=== PATIENT | male | born 1955 | race Caucasian/White ===

== ENCOUNTER 2023-08-25 19:09 | Emergency (ER) | payer OTHER, SELFPAY ==
[2023-08-25] VITALS (10 sets, daily range): BP systolic 142–160; BP diastolic 75–88; PULSE 82–98; RESP 18; TEMP 36.9; O2SAT 93–97; BMI 28.5
--- NOTE | 2023-08-25 19:50 | ED.NAVMDI ---
HPI - Nausea/Vomiting/Diarrhea General Chief complaint: Nausea/Vomiting/Diarrhea Stated complaint: disoriented, dehydrated, vomitting Time Seen by Provider: 08/25/23 19:37 Source: patient Mode of arrival: Ambulatory History of Present Illness HPI Narrative: 68-year-old male here for evaluation of just under 24 hours of multiple episodes of vomiting. No diarrhea. No recent travel. He stated that a family member recently had a URI like illness and he develop that yesterday as well. Denies chest pain or shortness of breath. Is having some congestion. No abdominal pain. He states he feels very fatigued. Has not tried anything for symptoms prior to arrival Related Data Allergies Allergy/AdvReac Type Severity Reaction Status Date / Time clopidogrel Allergy Verified 08/25/23 19:51 Review of Systems Review of Systems Narrative: See HPI Patient History Social History Smoking Status: Former smoker Smoking Status: Former smoker alcohol intake frequency: a few times a month Alcohol type: beer, wine and hard liquor Substance Use Type: does not use Exam Initial Vital Signs Initial Vital Signs: Vital Signs Pulse Rate 95 H 08/25/23 19:21 Pulse Oximetry 94 08/25/23 19:21 Const General: cooperative, comfortable and No ill appearing Resp Effort & Inspection: normal respiratory effort Auscultation: clear to auscultation bilaterally Cardio Rate: regular rate Rhythm: regular rhythm GI Inspection: normal to inspection and non-distended Palpation: soft and No tender Skin General: no rashes or lesions noted Neuro General: patient alert, patient awake, patient oriented x3 and moves all extremities Extrem General: normal to inspection Course Orders Ordered: ED Orders 08/25/23 19:40 Complete Blood Count AUTO DIFF Stat Comprehensive Metabolic Panel Stat Lipase Stat 08/25/23 19:53 Covid-19 + FLU A/B + RSV - PCR Stat Discontinued Medications Sodium Chloride (Normal Saline 0.9%) 1,000 mls @ 1,000 mls/hr IV BOLUS ONE Stop: 08/25/23 20:42 Last Infusion: 08/25/23 22:25 Dose: Infused Documented By: Admin: 08/25/23 19:56 Dose: 1,000 mls/hr Documented By: GISELA Ondansetron HCl (Ondansetron 4 Mg Odt) 4 mg SL NOW PRN PRN Reason: Nausea And Vomiting Ondansetron HCl (Ondansetron 4 Mg/2 Ml Inj) 4 mg IV NOW PRN PRN Reason: Nausea And Vomiting Last Admin: 08/25/23 19:57 Dose: 4 mg Documented By: GISELA Ondansetron HCl (Ondansetron 4 Mg Odt Prepack) 1 bottle MISC DIRECTED ONE Stop: 08/25/23 21:44 Last Admin: 08/25/23 22:24 Dose: 1 bottle Documented By: GISELA Vital Signs Vital signs: Vital Signs - 8 hr 08/25/23 19:21 08/25/23 19:23 08/25/23 19:23 Temperature Pulse Rate 95 H 94 H Respiratory Rate Blood Pressure 160/87 H Pulse Oximetry 94 94 Oxygen Delivery Method 08/25/23 19:24 08/25/23 19:30 08/25/23 19:30 Temperature 98.4 F Pulse Rate 94 H 89 Respiratory Rate 18 Blood Pressure 160/87 H 150/82 H Pulse Oximetry 95 93 Oxygen Delivery Method Room Air 08/25/23 20:00 08/25/23 20:00 08/25/23 20:30 Temperature Pulse Rate 89 88 Respiratory Rate Blood Pressure 151/75 H Pulse Oximetry 94 96 Oxygen Delivery Method 08/25/23 20:30 08/25/23 21:00 08/25/23 21:30 Temperature Pulse Rate 87 98 H Respiratory Rate Blood Pressure 152/88 H Pulse Oximetry 97 97 Oxygen Delivery Method 08/25/23 22:00 08/25/23 22:14 08/25/23 22:14 Temperature Pulse Rate 82 90 Respiratory Rate Blood Pressure 142/85 H Pulse Oximetry 96 96 Oxygen Delivery Method MDM - Nausea/Vomiting/Diarrhea Lab Data 08/25/23 19:40 08/25/23 19:40 Labs: Lab Results 08/25/23 08/25/23 Range/Units 19:40 19:53 WBC 9.0 (4.5-11.0) X10^3/uL RBC 4.68 (4.5-5.9) X10^6/uL Hgb 15.4 (13.5-17.5) g/dL Hct 43.7 (41-53) % MCV 93.5 (80-100) fL MCH 32.9 (26-34) PG MCHC 35.3 (30-36) % RDW 13.2 (11.6-14.8) % Plt Count 214 (150-400) X10^3/uL Neut % (Auto) 85.6 H (50-75) % Lymph % (Auto) 5.4 L (25-40) % Glades % (Auto) 8.9 (3-14) % Eos % (Auto) 0.0 L (2-4) % Baso % (Auto) 0.1 (0-2) % Neut # (Auto) 7700 H (1790-7195) /uL Lymph # (Auto) 500 L (4619-4795) /uL Glades # (Auto) 800 (0-900) /uL Eos # (Auto) 0 (0-450) /uL Baso # (Auto) 0 (0-100) /uL Sodium 135 L (137-145) mmol/L Potassium 3.9 (3.4-5.1) mmol/L Chloride 104 (98-107) mmol/L Carbon Dioxide 22 (22-32) mmol/L BUN 12 (9-20) mg/dL Creatinine 0.57 L (0.66-1.25) mg/dL Estimated GFR > 60 (>60) mL/min BUN/Creatinine Ratio 21.1 (6-22) Glucose 153 H (80-110) mg/dL Calcium 8.9 (8.4-10.2) mg/dL Total Bilirubin 0.7 (0.2-1.3) mg/dL AST 23 (17-59) IU/L ALT 23 (<50) IU/L Alkaline Phosphatase 82 (38-126) U/L Total Protein 7.2 (6.3-8.2) g/dL Albumin 4.7 (3.5-5.0) g/dL Globulin 2.5 (1.7-4.1) g/dL Albumin/Globulin Ratio 1.9 (1.0-2.8) Lipase 35 (23-300) U/L SARS-CoV-2 (PCR) Negative (Negative) Influenza A (RT-PCR) Flu a negative (NEGATIVE) Influenza B (RT-PCR) Flu b negative (NEGATIVE) RSV (PCR) Negative (Negative) MDM Narrative Medical decision making narrative: Labs unremarkable. After fluids here in the emergency department and medications he stated that he was feeling much better. He tolerated oral intake. Will discharge patient home nausea medication. He was given return precautions. Discharge Plan Departure Patient Disposition: Home Clinical Impression: Acute vomiting, Dehydration Instructions: DI for Vomiting -- Adult Activity Restrictions/Additional Instructions: I do recommend a bland diet for the next couple days. Try to increase your fluid intake. Use the nausea medication as needed. I would not be surprised if you develop some diarrhea over the next couple days as well as this frequently follows episodes of vomiting. Return to the emergency department for new or worsening symptoms. Stand Alone Forms: Patient Portal/API
[2023-08-25 19:52] LABS: Add Manual Diff / Slide Review NO; Basophils Absolute Auto 0 /uL (0-100); Basophils Percent Auto 0.1 % (0-2); Eosinophils Absolute Auto 0 /uL (0-450); Hematocrit 43.7 % (41-53); Hemoglobin 15.4 g/dL (13.5-17.5); Lymphocytes Absolute Auto 500 /uL (1100-4500); Lymphocytes Percent Auto 5.4 % (25-40); Mean Corpuscular HGB Conc 35.3 % (30-36); Mean Corpuscular Hemoglobin 32.9 PG (26-34); Mean Corpuscular Volume 93.5 fL (80-100); Monocytes Absolute Auto 800 /uL (0-900); Monocytes Percent Auto 8.9 % (3-14); Neutrophils Absolute Auto 7700 /uL (1500-7000); Neutrophils Percent Auto 85.6 % (50-75); Platelet Count 214 X10^3/uL (150-400); Red Blood Cell Count 4.68 X10^6/uL (4.5-5.9); Red Cell Distribution Width 13.2 % (11.6-14.8)
[2023-08-25] MEDS: SODIUM CHLORIDE 0.9% 1,000 ML 1000 ML IV (19:56)
[2023-08-25] MEDS: ONDANSETRON 4 MG/2 ML INJ IV (19:57)
[2023-08-25 20:05] LABS: Alanine Aminotransferase 23 IU/L (<50); Albumin 4.7 g/dL (3.5-5.0); Albumin Globulin Ratio 1.9 (1.0-2.8); Alkaline Phosphatase 82 U/L (38-126); Aspartate Aminotransferase 23 IU/L (17-59); BUN Creatinine Ratio 21.1 (6-22); Bilirubin Total 0.7 mg/dL (0.2-1.3); Blood Urea Nitrogen 12 mg/dL (9-20); Calcium 8.9 mg/dL (8.4-10.2); Carbon Dioxide 22 mmol/L (22-32); Chloride 104 mmol/L (98-107); Estimated Glomerular Filt Rate > 60 mL/min (>60); Globulin 2.5 g/dL (1.7-4.1); Glucose 153 mg/dL (80-110); HEMOLYSIS < 15 (0-50); Lipase 35 U/L (23-300); Potassium 3.9 mmol/L (3.4-5.1); Sodium 135 mmol/L (137-145); Total Protein 7.2 g/dL (6.3-8.2)
[2023-08-25 21:11] LABS: Influenza A - CEPHEID Flu A NEGATIVE (NEGATIVE); Influenza B - CEPHEID Flu B NEGATIVE (NEGATIVE); Respiratory Syncytial Virus Negative (Negative)
--- NOTE | 2023-08-25 21:15 | PC.NURSE ---
Pt PO challeneg given pt stating that he feels good and not vomiting. YRN Esquivel advised.
[2023-08-25 21:25] LABS: COVID-19 CEPHEID 4-PLEX PCR Negative (Negative)
[2023-08-25] MEDS: ONDANSETRON 4 MG ODT PREPACK 1 BOTTLE MISC (22:24)
== END 2023-08-25 22:27 | disposition home or self-care (01) ==
PROVIDERS: Emergency Provider Emergency Medicine
DX: R11.2 Nausea with vomiting, unspecified (principal); E86.0 Dehydration
CPT/HCPCS: 0241U; 80053; 83690; 85025; 96361; 96374; 99283; 99284; J2405